=== PATIENT | female | born 1955 | race Caucasian/White ===

== ENCOUNTER → 2018-03-06 | Outpatient (REF) | payer MEDICARE, MEDICAID | LOC: M LAB REF 19:36 | DX: Z51.81 Encounter for therapeutic drug level monitoring (principal); Z79.899 Other long term (current) drug therapy ==

== ENCOUNTER → 2018-04-10 | Outpatient (CLI) | payer MEDICARE, MEDICAID ==
[2018-04-10 13:31] LABS: BASO % 0.8 % (0.0-1.0); EOS % 1.2 % (0.0-3.0); IMMATURE GRANULOCYTE % 0.4 % (0-3.0); LYMPH # 0.9 10^3/uL (1.5-4.5); LYMPH % 33.7 % (24.0-44.0); MONO # 0.3 10^3/uL (0.0-0.8); MONO % 10.6 % (0.0-5.0); NEUTROPHILS # 1.4 10^3/uL (1.8-7.7); NEUTROPHILS % 53.3 % (36.0-66.0)
[2018-04-10 15:19] LABS: HEMATOCRIT 36.6 % (36.0-47.0); MEAN CORPUSCULAR HEMOGLOBIN 28.4 pg (27.0-33.0); MEAN CORPUSCULAR HGB CONC 32.8 g/dl (32.0-36.5); MEAN CORPUSCULAR VOLUME 86.7 fl (80.0-96.0); PLATELET COUNT, AUTOMATED 233 10^3/uL (150-450); RED BLOOD COUNT 4.22 10^6/uL (4.00-5.40); RED CELL DISTRIBUTION WIDTH 12.4 % (11.5-14.5); WHITE BLOOD COUNT 2.6 10^3/uL (4.0-10.0)
== END ==
LOC: M LAB 11:41
DX: F25.0 Schizoaffective disorder, bipolar type (principal); Z79.899 Other long term (current) drug therapy
CPT/HCPCS: 85027

== ENCOUNTER → 2018-04-14 | Outpatient (CLI) | payer MEDICARE, MEDICAID ==
[2018-04-14 10:01] LABS: BASO % 0.4 % (0.0-1.0); EOS % 0.4 % (0.0-3.0); HEMOGLOBIN 12.1 g/dl (12.0-15.5); IMMATURE GRANULOCYTE % 0.4 % (0-3.0); LYMPH # 0.8 10^3/uL (1.5-4.5); LYMPH % 26.7 % (24.0-44.0); MEAN CORPUSCULAR HEMOGLOBIN 28.3 pg (27.0-33.0); MEAN CORPUSCULAR HGB CONC 33.6 g/dl (32.0-36.5); MEAN CORPUSCULAR VOLUME 84.3 fl (80.0-96.0); MONO # 0.3 10^3/uL (0.0-0.8); MONO % 9.3 % (0.0-5.0); NEUTROPHILS # 1.8 10^3/uL (1.8-7.7); NEUTROPHILS % 62.8 % (36.0-66.0); PLATELET COUNT, AUTOMATED 279 10^3/uL (150-450); RED BLOOD COUNT 4.27 10^6/uL (4.00-5.40); RED CELL DISTRIBUTION WIDTH 12.6 % (11.5-14.5); WHITE BLOOD COUNT 2.8 10^3/uL (4.0-10.0)
[2018-04-14 10:27] LABS: ALBUMIN 3.2 GM/DL (3.2-5.2); ALBUMIN/GLOBULIN RATIO 1.03 (1.00-1.93); ALKALINE PHOSPHATASE 93 U/L (45-117); ALT/SGPT 26 U/L (12-78); ANION GAP 8 MEQ/L (8-16); AST/SGOT 13 U/L (7-37); BILIRUBIN,TOTAL 0.4 MG/DL (0.2-1.0); BLOOD UREA NITROGEN 15 MG/DL (7-18); CALCIUM LEVEL 8.6 MG/DL (8.8-10.2); CARBON DIOXIDE LEVEL 29 MEQ/L (21-32); CHLORIDE LEVEL 101 MEQ/L (98-107); CHOLESTEROL LEVEL 169 MG/DL (<200); CHOLESTEROL RISK RATIO 2.682 (<5); CREATININE FOR GFR 0.48 MG/DL (0.55-1.30); FREE T4 0.93 NG/DL (0.76-1.46); GLOMERULAR FILTRATION RATE > 60.0 (>45); GLUCOSE, FASTING 80 MG/DL (70-100); HDL CHOLESTEROL 63 MG/DL (>40); LDL CHOLESTEROL 89.2 MG/DL (<100); NON-HDL-C 106 MG/DL; POTASSIUM SERUM 4.3 MEQ/L (3.5-5.1); SODIUM LEVEL 138 MEQ/L (136-145); TOTAL PROTEIN 6.3 GM/DL (6.4-8.2); TRIGLYCERIDES LEVEL 84 MG/DL (<150)
== END ==
LOC: M LAB 08:46
DX: F25.0 Schizoaffective disorder, bipolar type (principal); R94.31 Abnormal electrocardiogram [ECG] [EKG]; Z79.899 Other long term (current) drug therapy
CPT/HCPCS: 93005

== ENCOUNTER → 2018-04-17 | Outpatient (CLI) | payer MEDICARE, MEDICAID ==
[2018-04-17 09:30] LABS: BASO % 1.3 % (0.0-1.0); EOS % 0.3 % (0.0-3.0); HEMATOCRIT 36.2 % (36.0-47.0); HEMOGLOBIN 11.8 g/dl (12.0-15.5); IMMATURE GRANULOCYTE % 0.3 % (0-3.0); LYMPH # 0.8 10^3/uL (1.5-4.5); LYMPH % 25.9 % (24.0-44.0); MEAN CORPUSCULAR HEMOGLOBIN 27.8 pg (27.0-33.0); MEAN CORPUSCULAR HGB CONC 32.6 g/dl (32.0-36.5); MEAN CORPUSCULAR VOLUME 85.2 fl (80.0-96.0); MONO # 0.3 10^3/uL (0.0-0.8); MONO % 10.7 % (0.0-5.0); NEUTROPHILS % 61.5 % (36.0-66.0); PLATELET COUNT, AUTOMATED 269 10^3/uL (150-450); RED BLOOD COUNT 4.25 10^6/uL (4.00-5.40); RED CELL DISTRIBUTION WIDTH 12.5 % (11.5-14.5); WHITE BLOOD COUNT 3.2 10^3/uL (4.0-10.0)
[2018-04-17 10:14] LABS: ALBUMIN 3.2 GM/DL (3.2-5.2); ALBUMIN/GLOBULIN RATIO 1.03 (1.00-1.93); ALKALINE PHOSPHATASE 94 U/L (45-117); ALT/SGPT 24 U/L (12-78); ANION GAP 10 MEQ/L (8-16); AST/SGOT 17 U/L (7-37); BILIRUBIN,TOTAL 0.3 MG/DL (0.2-1.0); BLOOD UREA NITROGEN 18 MG/DL (7-18); CALCIUM LEVEL 8.7 MG/DL (8.8-10.2); CARBON DIOXIDE LEVEL 30 MEQ/L (21-32); CHLORIDE LEVEL 100 MEQ/L (98-107); CHOLESTEROL LEVEL 166 MG/DL (<200); CHOLESTEROL RISK RATIO 2.677 (<5); CREATININE FOR GFR 0.39 MG/DL (0.55-1.30); FREE T4 1.04 NG/DL (0.76-1.46); GLOMERULAR FILTRATION RATE > 60.0 (>45); GLUCOSE, FASTING 84 MG/DL (70-100); HDL CHOLESTEROL 62 MG/DL (>40); NON-HDL-C 104 MG/DL; POTASSIUM SERUM 4.6 MEQ/L (3.5-5.1); SODIUM LEVEL 140 MEQ/L (136-145); TOTAL PROTEIN 6.3 GM/DL (6.4-8.2); TRIGLYCERIDES LEVEL 65 MG/DL (<150)
== END ==
LOC: M LAB 08:31
DX: F25.0 Schizoaffective disorder, bipolar type (principal); Z79.899 Other long term (current) drug therapy
CPT/HCPCS: 84443

== ENCOUNTER → 2018-04-21 | Outpatient (CLI) | payer MEDICARE, MEDICAID ==
[2018-04-21 09:48] LABS: BASO % 0.9 % (0.0-1.0); EOS # 0.1 10^3/uL (0.0-0.50); EOS % 1.7 % (0.0-3.0); HEMATOCRIT 35.2 % (36.0-47.0); HEMOGLOBIN 11.6 g/dl (12.0-15.5); IMMATURE GRANULOCYTE % 0.3 % (0-3.0); LYMPH # 1.1 10^3/uL (1.5-4.5); LYMPH % 30.6 % (24.0-44.0); MEAN CORPUSCULAR HEMOGLOBIN 28.2 pg (27.0-33.0); MEAN CORPUSCULAR VOLUME 85.4 fl (80.0-96.0); MONO # 0.3 10^3/uL (0.0-0.8); NEUTROPHILS # 2.1 10^3/uL (1.8-7.7); NEUTROPHILS % 58.5 % (36.0-66.0); PLATELET COUNT, AUTOMATED 255 10^3/uL (150-450); RED BLOOD COUNT 4.12 10^6/uL (4.00-5.40); RED CELL DISTRIBUTION WIDTH 12.5 % (11.5-14.5); WHITE BLOOD COUNT 3.5 10^3/uL (4.0-10.0)
== END ==
LOC: M LAB 09:19
DX: F25.0 Schizoaffective disorder, bipolar type (principal)
CPT/HCPCS: 85025

== ENCOUNTER → 2018-04-28 | Outpatient (CLI) | payer MEDICARE, MEDICAID ==
[2018-04-28 09:34] LABS: BASO % 1.3 % (0.0-1.0); EOS # 0.1 10^3/uL (0.0-0.50); HEMATOCRIT 35.7 % (36.0-47.0); HEMOGLOBIN 11.8 g/dl (12.0-15.5); IMMATURE GRANULOCYTE % 0.3 % (0-3.0); LYMPH # 1.2 10^3/uL (1.5-4.5); LYMPH % 38.1 % (24.0-44.0); MEAN CORPUSCULAR HGB CONC 33.1 g/dl (32.0-36.5); MEAN CORPUSCULAR VOLUME 84.8 fl (80.0-96.0); MONO # 0.3 10^3/uL (0.0-0.8); MONO % 10.7 % (0.0-5.0); NEUTROPHILS # 1.5 10^3/uL (1.8-7.7); NEUTROPHILS % 47.6 % (36.0-66.0); PLATELET COUNT, AUTOMATED 233 10^3/uL (150-450); RED BLOOD COUNT 4.21 10^6/uL (4.00-5.40); RED CELL DISTRIBUTION WIDTH 12.9 % (11.5-14.5); WHITE BLOOD COUNT 3.1 10^3/uL (4.0-10.0)
== END ==
LOC: M LAB 08:56
DX: F25.0 Schizoaffective disorder, bipolar type (principal)
CPT/HCPCS: 85025

== ENCOUNTER → 2018-04-29 | Outpatient (CLI) | payer MEDICARE, MEDICAID ==
[2018-04-29 09:04] LABS: BASO % 0.9 % (0.0-1.0); EOS # 0.1 10^3/uL (0.0-0.50); EOS % 1.2 % (0.0-3.0); HEMATOCRIT 35.6 % (36.0-47.0); HEMOGLOBIN 11.6 g/dl (12.0-15.5); IMMATURE GRANULOCYTE % 0.7 % (0-3.0); LYMPH # 0.9 10^3/uL (1.5-4.5); LYMPH % 21.4 % (24.0-44.0); MEAN CORPUSCULAR HGB CONC 32.6 g/dl (32.0-36.5); MEAN CORPUSCULAR VOLUME 85.8 fl (80.0-96.0); MONO # 0.4 10^3/uL (0.0-0.8); MONO % 9.4 % (0.0-5.0); NEUTROPHILS # 2.8 10^3/uL (1.8-7.7); NEUTROPHILS % 66.4 % (36.0-66.0); PLATELET COUNT, AUTOMATED 232 10^3/uL (150-450); RED BLOOD COUNT 4.15 10^6/uL (4.00-5.40); RED CELL DISTRIBUTION WIDTH 12.8 % (11.5-14.5); WHITE BLOOD COUNT 4.3 10^3/uL (4.0-10.0)
== END ==
LOC: M LAB 08:36
DX: F25.0 Schizoaffective disorder, bipolar type (principal)
CPT/HCPCS: 85025

== ENCOUNTER → 2018-05-05 | Outpatient (CLI) | payer MEDICARE, MEDICAID ==
[2018-05-05 09:46] LABS: BASO % 0.8 % (0.0-1.0); EOS # 0.1 10^3/uL (0.0-0.50); EOS % 1.7 % (0.0-3.0); HEMATOCRIT 39.2 % (36.0-47.0); HEMOGLOBIN 12.8 g/dl (12.0-15.5); IMMATURE GRANULOCYTE % 0.2 % (0-3.0); LYMPH # 1.4 10^3/uL (1.5-4.5); LYMPH % 28.2 % (24.0-44.0); MEAN CORPUSCULAR HEMOGLOBIN 27.9 pg (27.0-33.0); MEAN CORPUSCULAR HGB CONC 32.7 g/dl (32.0-36.5); MEAN CORPUSCULAR VOLUME 85.4 fl (80.0-96.0); MONO # 0.7 10^3/uL (0.0-0.8); MONO % 15.3 % (0.0-5.0); NEUTROPHILS # 2.6 10^3/uL (1.8-7.7); NEUTROPHILS % 53.8 % (36.0-66.0); PLATELET COUNT, AUTOMATED 252 10^3/uL (150-450); RED BLOOD COUNT 4.59 10^6/uL (4.00-5.40); WHITE BLOOD COUNT 4.8 10^3/uL (4.0-10.0)
== END ==
LOC: M LAB 09:26
DX: F25.0 Schizoaffective disorder, bipolar type (principal)
CPT/HCPCS: 85025

== ENCOUNTER 2018-08-13 10:04 | Inpatient (IN) | payer MEDICARE, MEDICAID ==
[2018-08-13 11:13] LABS: HEMATOCRIT 38.8 % (36.0-47.0); HEMOGLOBIN 12.8 g/dl (12.0-15.5); MEAN CORPUSCULAR VOLUME 84.9 fl (80.0-96.0); PLATELET COUNT, AUTOMATED 235 10^3/uL (150-450); RED BLOOD COUNT 4.57 10^6/uL (4.00-5.40); RED CELL DISTRIBUTION WIDTH 14.2 % (11.5-14.5); WHITE BLOOD COUNT 9.7 10^3/uL (4.0-10.0)
[2018-08-13 12:04] LABS: ALBUMIN 4.2 GM/DL (3.2-5.2); ALBUMIN/GLOBULIN RATIO 1.35 (1.00-1.93); ALKALINE PHOSPHATASE 95 U/L (45-117); ALT/SGPT 50 U/L (12-78); ANION GAP 6 MEQ/L (8-16); AST/SGOT 28 U/L (7-37); BILIRUBIN,DIRECT < 0.1 MG/DL (0.0-0.2); BILIRUBIN,TOTAL 0.4 MG/DL (0.2-1.0); BLOOD UREA NITROGEN 16 MG/DL (7-18); CALCIUM LEVEL 9.3 MG/DL (8.8-10.2); CARBON DIOXIDE LEVEL 29 MEQ/L (21-32); CHLORIDE LEVEL 102 MEQ/L (98-107); CREATININE FOR GFR 0.51 MG/DL (0.55-1.30); ETHYL ALCOHOL (ETHANOL) < 0.003 % (0.000-0.010); GLOMERULAR FILTRATION RATE > 60.0 (>45); GLUCOSE, FASTING 87 MG/DL (70-100); POTASSIUM SERUM 4.2 MEQ/L (3.5-5.1); SALICYLATE LEVEL < 1.7 MG/DL (5.0-30.0); SODIUM LEVEL 137 MEQ/L (136-145); TOTAL PROTEIN 7.3 GM/DL (6.4-8.2)
[2018-08-13 12:06] LABS: ACETAMINOPHEN LEVEL < 2.0 UG/ML (10.0-30.0)
[2018-08-13] MEDS ORDERED: MOM 30ML SUSPENSION UDC PO (13:45)
[2018-08-13 13:46] LABS: AMPHETAMINES LEVEL URINE NEGATIVE (NEGATIVE); BARBITURATES URINE NEGATIVE (NEGATIVE); BENZODIAZEPINES URINE NEGATIVE (NEGATIVE); CANNABINOIDS URINE NEGATIVE (NEGATIVE); COCAINE METABOLITE URINE NEGATIVE (NEGATIVE); METHADONE URINE NEGATIVE (NEGATIVE); OPIATES URINE NEGATIVE (NEGATIVE); PHENCYCLIDINE URINE NEGATIVE (NEGATIVE)
[2018-08-13] MEDS: LORazepam 1 MG TAB PO (17:25)
[2018-08-13] MEDS ORDERED: ALBUTEROL 90 MCG/ACT 8GM HFA INHALER INH (18:30)
[2018-08-13] MEDS: OLANZapine 10 MG TAB PO (21:50)
[2018-08-13] MEDS: MAALOX 30 ML SUSP *UDC PO (21:50)
[2018-08-13] MEDS: FLUTICASONE HFA 110 MCG 12 GM INHALER (FLOVENT) INH (21:51)
[2018-08-14] MEDS: ARIPiprazole 10 MG TAB PO ×2 (09:00→21:00)
[2018-08-14] MEDS: FLUTICASONE HFA 110 MCG 12 GM INHALER (FLOVENT) INH ×2 (10:04→21:00)
[2018-08-14] MEDS: LORazepam 2 MG TAB PO (15:25)
[2018-08-14] MEDS: OLANZapine 10 MG TAB PO (21:00)
[2018-08-15] MEDS: OLANZapine 10 MG TAB PO ×2 (00:10→22:43)
[2018-08-15] MEDS: LORazepam 2 MG TAB PO ×2 (00:10→19:56)
[2018-08-15] MEDS: traZODone 50 MG TAB PO (00:10)
[2018-08-15] MEDS: ARIPiprazole 10 MG TAB PO ×2 (08:52→21:00)
[2018-08-15] MEDS: FLUTICASONE HFA 110 MCG 12 GM INHALER (FLOVENT) INH ×2 (08:52→21:00)
[2018-08-16] MEDS: ARIPiprazole 10 MG TAB PO ×2 (08:06→21:00)
[2018-08-16] MEDS: FLUTICASONE HFA 110 MCG 12 GM INHALER (FLOVENT) INH ×2 (08:06→21:00)
[2018-08-16] MEDS: OLANZapine 10 MG TAB PO (21:00)
[2018-08-17] MEDS: MAALOX 30 ML SUSP *UDC PO (04:10)
[2018-08-17] MEDS: FLUTICASONE HFA 110 MCG 12 GM INHALER (FLOVENT) INH ×2 (08:08→21:00)
[2018-08-17] MEDS: ARIPiprazole 10 MG TAB PO ×2 (08:08→21:00)
[2018-08-17] MEDS: LORazepam 2 MG TAB PO (14:44)
[2018-08-17] MEDS: OLANZapine 10 MG TAB PO (21:00)
[2018-08-17] MEDS: traZODone 50 MG TAB PO (21:09)
[2018-08-18] MEDS: ACETAMINOPHEN TAB 650MG DOSE (2X325MG) PO (00:28)
[2018-08-18] MEDS: MAALOX 30 ML SUSP *UDC PO (03:33)
[2018-08-18] MEDS: ARIPiprazole 10 MG TAB PO (08:03)
[2018-08-18] MEDS: FLUTICASONE HFA 110 MCG 12 GM INHALER (FLOVENT) INH ×2 (08:05→19:54)
[2018-08-18] MEDS ORDERED: LIDOCAINE 5% OINT 30 GM TOP (10:30)
[2018-08-18] MEDS: DOCUSATE SODIUM 100 MG CAP PO (10:53)
[2018-08-18] MEDS: oxyBUTYnin *DITROPAN XL* 5 MG TABCR PO (11:45)
[2018-08-18] MEDS: MIRALAX *UNIT DOSE* 17GM PACKET PO (11:46)
[2018-08-18 15:10] LABS: KETONE, URINE AUTO RFX NEGATIVE (NEGATIVE); LEUKOCYTE ESTERASE UR AUTO RFX NEGATIVE (NEGATIVE); MUCUS, URINE RFX SMALL (NEGATIVE); NITRITE, URINE AUTO RFX NEGATIVE (NEGATIVE); RBC, URINE AUTO RFX 0 /HPF (0-3); SPECIFIC GRAVITY UR AUTO RFX 1.006 (1.002-1.035); SQUAM EPITHELIAL CELL UR AURFX 0 /HPF (0-6); WBC, URINE AUTO RFX 0 /HPF (0-3)
[2018-08-18] MEDS: OLANZapine 10 MG TAB PO (19:54)
[2018-08-18] MEDS: ARIPiprazole 15 MG TAB (AbiLIFY) PO (19:54)
[2018-08-19] MEDS: FLUTICASONE HFA 110 MCG 12 GM INHALER (FLOVENT) INH ×2 (08:03→20:03)
[2018-08-19] MEDS: oxyBUTYnin *DITROPAN XL* 5 MG TABCR PO (08:03)
[2018-08-19] MEDS: ARIPiprazole 15 MG TAB (AbiLIFY) PO ×2 (08:03→20:04)
[2018-08-19] MEDS: OLANZapine ORAL DISINTEGRATING TAB 5MG PO (15:22)
[2018-08-19] MEDS: OLANZapine 10 MG TAB PO (20:04)
[2018-08-20] MEDS: MAALOX 30 ML SUSP *UDC PO (04:26)
[2018-08-20] MEDS: FLUTICASONE HFA 110 MCG 12 GM INHALER (FLOVENT) INH ×2 (08:05→21:00)
[2018-08-20] MEDS: ARIPiprazole 15 MG TAB (AbiLIFY) PO ×2 (08:06→21:00)
[2018-08-20] MEDS: oxyBUTYnin *DITROPAN XL* 5 MG TABCR PO (08:06)
[2018-08-20] MEDS: ARIPIPRAZOLE LAUROXIL 1,064 MG/3.9ML INJ(ARISTADA)(J1942 PER 1MG) IM (13:32)
[2018-08-20] MEDS: OLANZapine ORAL DISINTEGRATING TAB 5MG PO (17:00)
[2018-08-20] MEDS: HYDROCORTISONE 1% CREAM 30 GM TOP (17:57)
[2018-08-20] MEDS: OLANZapine 10 MG TAB PO (21:00)
[2018-08-21] MEDS: MAALOX 30 ML SUSP *UDC PO ×2 (01:59→23:36)
[2018-08-21] MEDS: ARIPiprazole 15 MG TAB (AbiLIFY) PO (09:00)
[2018-08-21] MEDS: FLUTICASONE HFA 110 MCG 12 GM INHALER (FLOVENT) INH ×2 (09:00→21:00)
[2018-08-21] MEDS: DOCUSATE SODIUM 100 MG CAP PO (09:53)
[2018-08-21] MEDS: oxyBUTYnin *DITROPAN XL* 5 MG TABCR PO (09:53)
[2018-08-21] MEDS: BISACODYL 5 MG TAB PO (11:10)
[2018-08-21] MEDS: OLANZapine 10 MG TAB PO (21:22)
[2018-08-22] MEDS: OLANZapine ORAL DISINTEGRATING TAB 5MG PO (03:32)
[2018-08-22] MEDS: FLUTICASONE HFA 110 MCG 12 GM INHALER (FLOVENT) INH ×2 (09:00→20:29)
[2018-08-22] MEDS: oxyBUTYnin *DITROPAN XL* 5 MG TABCR PO (09:00)
[2018-08-22] MEDS: HYDROCORTISONE 1% CREAM 30 GM TOP (09:46)
[2018-08-22] MEDS: LORazepam 2 MG TAB PO (10:13)
[2018-08-22] MEDS: diphenhydrAMINE CREAM 30GM TOP (15:22)
[2018-08-22] MEDS: OLANZapine 10 MG TAB PO (20:28)
[2018-08-22] MEDS: MAALOX 30 ML SUSP *UDC PO (22:07)
[2018-08-23] MEDS: BISACODYL 5 MG TAB PO (09:00)
[2018-08-23] MEDS: FLUTICASONE HFA 110 MCG 12 GM INHALER (FLOVENT) INH ×2 (09:00→20:16)
[2018-08-23] MEDS: oxyBUTYnin *DITROPAN XL* 5 MG TABCR PO (09:28)
[2018-08-23] MEDS: OLANZapine 10 MG TAB PO (20:15)
[2018-08-23] MEDS: ACETAMINOPHEN TAB 650MG DOSE (2X325MG) PO (20:17)
[2018-08-24] MEDS: MAALOX 30 ML SUSP *UDC PO ×2 (02:25→06:36)
[2018-08-24] MEDS: oxyBUTYnin *DITROPAN XL* 5 MG TABCR PO (08:04)
[2018-08-24] MEDS: BISACODYL 5 MG TAB PO (08:04)
[2018-08-24] MEDS: FLUTICASONE HFA 110 MCG 12 GM INHALER (FLOVENT) INH ×2 (08:05→20:00)
[2018-08-24] MEDS: OLANZapine 10 MG TAB PO (20:01)
[2018-08-25] MEDS: MAALOX 30 ML SUSP *UDC PO (01:04)
[2018-08-25] MEDS: oxyBUTYnin *DITROPAN XL* 5 MG TABCR PO (08:09)
[2018-08-25] MEDS: DOCUSATE SODIUM 100 MG CAP PO (08:10)
[2018-08-25] MEDS: BISACODYL 5 MG TAB PO ×2 (08:12)
[2018-08-25] MEDS: FLUTICASONE HFA 110 MCG 12 GM INHALER (FLOVENT) INH ×3 (09:00→22:59)
[2018-08-25] MEDS: OLANZapine ORAL DISINTEGRATING TAB 5MG PO (20:43)
[2018-08-26] MEDS: MAALOX 30 ML SUSP *UDC PO ×2 (02:03→22:50)
[2018-08-26] MEDS: oxyBUTYnin *DITROPAN XL* 5 MG TABCR PO (08:30)
[2018-08-26] MEDS: DOCUSATE SODIUM 100 MG CAP PO (08:30)
[2018-08-26] MEDS: OLANZapine ORAL DISINTEGRATING TAB 5MG PO (20:08)
[2018-08-26] MEDS: FLUTICASONE HFA 110 MCG 12 GM INHALER (FLOVENT) INH (21:57)
[2018-08-27] MEDS: MAALOX 30 ML SUSP *UDC PO ×2 (03:55→23:00)
[2018-08-27] MEDS: FLUTICASONE HFA 110 MCG 12 GM INHALER (FLOVENT) INH ×2 (08:51→20:44)
[2018-08-27] MEDS: oxyBUTYnin *DITROPAN XL* 5 MG TABCR PO (08:51)
[2018-08-27] MEDS: **PENDING PPD ENTRY XX (09:00)
[2018-08-27] MEDS ORDERED: TUBERCULIN PPD 5 UNITS/0.1 ML ID (10:15)
[2018-08-27] MEDS: OLANZapine ORAL DISINTEGRATING TAB 5MG PO (20:43)
[2018-08-28] MEDS: MAALOX 30 ML SUSP *UDC PO (03:19)
[2018-08-28] MEDS: oxyBUTYnin *DITROPAN XL* 5 MG TABCR PO (08:23)
[2018-08-28] MEDS: FLUTICASONE HFA 110 MCG 12 GM INHALER (FLOVENT) INH ×2 (08:24→20:57)
[2018-08-28] MEDS: ACETAMINOPHEN TAB 650MG DOSE (2X325MG) PO (10:07)
[2018-08-28] MEDS: TUBERCULIN PPD 5 UNITS/0.1 ML ID (10:28)
[2018-08-28] MEDS: OLANZapine ORAL DISINTEGRATING TAB 5MG PO (20:54)
[2018-08-28] MEDS: LORazepam 2 MG TAB PO (20:54)
[2018-08-28] MEDS: BISACODYL 5 MG TAB PO (21:20)
[2018-08-29] MEDS: oxyBUTYnin *DITROPAN XL* 5 MG TABCR PO (08:48)
[2018-08-29] MEDS: FLUTICASONE HFA 110 MCG 12 GM INHALER (FLOVENT) INH ×2 (08:49→21:00)
[2018-08-29] MEDS ORDERED: PPD DOCUMENTATION ENTRY MISC XX (10:00)
[2018-08-29] MEDS: OLANZapine ORAL DISINTEGRATING TAB 5MG PO (20:40)
[2018-08-29] MEDS: ACETAMINOPHEN TAB 650MG DOSE (2X325MG) PO (22:24)
[2018-08-30] MEDS: MAALOX 30 ML SUSP *UDC PO ×2 (04:11→21:21)
[2018-08-30] MEDS: oxyBUTYnin *DITROPAN XL* 5 MG TABCR PO (08:07)
[2018-08-30] MEDS: FLUTICASONE HFA 110 MCG 12 GM INHALER (FLOVENT) INH ×2 (08:08→20:10)
[2018-08-30] MEDS: PPD DOCUMENTATION ENTRY MISC XX (10:18)
[2018-08-30] MEDS: BISACODYL 5 MG TAB PO (20:07)
[2018-08-30] MEDS: OLANZapine ORAL DISINTEGRATING TAB 5MG PO ×2 (20:08→20:10)
[2018-08-31] MEDS: FLUTICASONE HFA 110 MCG 12 GM INHALER (FLOVENT) INH ×2 (07:59→20:28)
[2018-08-31] MEDS: oxyBUTYnin *DITROPAN XL* 5 MG TABCR PO (07:59)
[2018-08-31] MEDS: OLANZapine ORAL DISINTEGRATING TAB 5MG PO (20:26)
[2018-09-01] MEDS: oxyBUTYnin *DITROPAN XL* 5 MG TABCR PO (08:24)
[2018-09-01] MEDS: FLUTICASONE HFA 110 MCG 12 GM INHALER (FLOVENT) INH ×2 (08:24→21:00)
[2018-09-01] MEDS: BISACODYL 5 MG TAB PO (08:24)
[2018-09-01] MEDS: OLANZapine ORAL DISINTEGRATING TAB 5MG PO (20:14)
[2018-09-01] MEDS: LORazepam 2 MG TAB PO (20:14)
[2018-09-02] MEDS: oxyBUTYnin *DITROPAN XL* 5 MG TABCR PO (08:49)
[2018-09-02] MEDS: FLUTICASONE HFA 110 MCG 12 GM INHALER (FLOVENT) INH ×2 (09:00→20:12)
[2018-09-02] MEDS: LORazepam 2 MG TAB PO (20:15)
[2018-09-02] MEDS: OLANZapine ORAL DISINTEGRATING TAB 5MG PO (20:15)
[2018-09-02] MEDS: MAALOX 30 ML SUSP *UDC PO ×2 (20:16→23:11)
[2018-09-02 23:31] LABS: BASO % 0.3 % (0.0-1.0); EOS # 0.1 10^3/uL (0.0-0.50); EOS % 2.1 % (0.0-3.0); HEMATOCRIT 36.4 % (36.0-47.0); HEMOGLOBIN 11.9 g/dl (12.0-15.5); IMMATURE GRANULOCYTE % 0.3 % (0-3.0); LYMPH # 1.6 10^3/uL (1.5-4.5); LYMPH % 26.3 % (24.0-44.0); MEAN CORPUSCULAR HEMOGLOBIN 28.4 pg (27.0-33.0); MEAN CORPUSCULAR HGB CONC 32.7 g/dl (32.0-36.5); MEAN CORPUSCULAR VOLUME 86.9 fl (80.0-96.0); MONO # 0.7 10^3/uL (0.0-0.8); MONO % 11.1 % (0.0-5.0); NEUTROPHILS # 3.7 10^3/uL (1.8-7.7); NEUTROPHILS % 59.9 % (36.0-66.0); PLATELET COUNT, AUTOMATED 249 10^3/uL (150-450); RED BLOOD COUNT 4.19 10^6/uL (4.00-5.40); WHITE BLOOD COUNT 6.2 10^3/uL (4.0-10.0)
[2018-09-02 23:50] LABS: INR 0.98; PROTHROMBIN TIME 13.1 SECONDS (12.1-14.4)
[2018-09-02 23:53] LABS: D-DIMER QUANT 508.68 ng/ml (<500)
[2018-09-03 00:08] LABS: ALBUMIN 3.2 GM/DL (3.2-5.2); ALBUMIN/GLOBULIN RATIO 1.03 (1.00-1.93); ALKALINE PHOSPHATASE 80 U/L (45-117); ALT/SGPT 19 U/L (12-78); ANION GAP 6 MEQ/L (8-16); AST/SGOT 13 U/L (7-37); BILIRUBIN,TOTAL 0.3 MG/DL (0.2-1.0); BLOOD UREA NITROGEN 16 MG/DL (7-18); CALCIUM LEVEL 8.5 MG/DL (8.8-10.2); CARBON DIOXIDE LEVEL 29 MEQ/L (21-32); CHLORIDE LEVEL 102 MEQ/L (98-107); CPK CREATINE PHOSPHOKINASE 47 U/L (26-192); CREATININE FOR GFR 0.57 MG/DL (0.55-1.30); GLOMERULAR FILTRATION RATE > 60.0 (>45); GLUCOSE, FASTING 123 MG/DL (70-100); MAGNESIUM LEVEL 2.1 MG/DL (1.8-2.4); MB/CK RELATIVE INDEX 3.62 (< OR =4); POTASSIUM SERUM 3.6 MEQ/L (3.5-5.1); SODIUM LEVEL 137 MEQ/L (136-145); TOTAL PROTEIN 6.3 GM/DL (6.4-8.2); TROPONIN I < 0.02 NG/ML (< 0.10)
[2018-09-03] MEDS ORDERED: ISOVUE-370 76% 100ML VIAL (Q9967) As Ordered (01:12)
[2018-09-03 05:43] LABS: HEMATOCRIT 39.5 % (36.0-47.0); HEMOGLOBIN 12.5 g/dl (12.0-15.5)
[2018-09-03 06:13] LABS: CPK CREATINE PHOSPHOKINASE 44 U/L (26-192); MB/CK RELATIVE INDEX 3.64 (< OR =4); TROPONIN I < 0.02 NG/ML (< 0.10)
[2018-09-03] MEDS: SUCRALFATE SUSP 1GM/10ML UD PO (07:30)
[2018-09-03] MEDS: FLUTICASONE HFA 110 MCG 12 GM INHALER (FLOVENT) INH (09:00)
[2018-09-03] MEDS: PANTOPRAZOLE 40MG TAB (PROTONIX) PO (09:05)
[2018-09-03] MEDS: oxyBUTYnin *DITROPAN XL* 5 MG TABCR PO (09:05)
[2018-09-03] MEDS: BISACODYL 5 MG TAB PO (09:05)
[2018-09-03] MEDS ORDERED: SUCRALFATE SUSP 1GM/10ML UD PO (12:00)
== END 2018-09-03 11:30 | disposition home or self-care (01) | DRG 885 ==
LOC: M PSY 08-15 13:05 → M ED 10:04 → M ED INP 15:33 → M PSY 16:35
PROVIDERS: Psychiatry & Neurology Psychiatry
DX: F25.9 Schizoaffective disorder, unspecified (principal); K21.9 Gastro-esophageal reflux disease without esophagitis; J44.9 Chronic obstructive pulmonary disease, unspecified; F17.200 Nicotine dependence, unspecified, uncomplicated; R07.9 Chest pain, unspecified; R21 Rash and other nonspecific skin eruption; K59.09 Other constipation; Z79.899 Other long term (current) drug therapy; Z79.51 Long term (current) use of inhaled steroids; Z88.6 Allergy status to analgesic agent; Z88.8 Allergy status to other drugs, medicaments and biological substances

== ENCOUNTER → 2018-09-23 | Outpatient (REF) | payer MEDICARE, MEDICAID ==
[~2018-09-23] MED LIST: /DIVA50TA PO; /MOM400 PO; ALBU17IN INH; ANOR1AER PO; ATIV1TAB7 PO; BENZ1TAB PO; BISAC5TA PO; CALC600T68 PO; COMBAER6 IN; DILT PO; DULC5TAB PO; FLUP5TA PO; FLUT11IN INH; FURO20TA2 PO; INSUH10VL INJ; INSULANT SC; INVE156I IM; LATU40TA PO; LATU80TA PO; METF1000 PO; MIRA3350 PO; MYLASSUD PO; NAPR500T2 PO; OLAN20TA14 PO; OLAN5ZYD PO; OMEP20CA3 PO; OXYB5TAB PO; PRED1TAB32 PO; PROAAER10 INH; STOO100C PO; SYNT25TA PO; TRAZO50TA PO; TYLE325T5 PO; VITA-122 PO; ZYPR10TA PO; ZYPR15TA PO; ZYPR20TA; ambien PO; eye drops
[2018-09-23 12:39] LABS: BASO % 0.3 % (0.0-1.0); EOS # 0.1 10^3/uL (0.0-0.50); EOS % 0.8 % (0.0-3.0); HEMATOCRIT 40.2 % (36.0-47.0); HEMOGLOBIN 13.2 g/dl (12.0-15.5); LYMPH # 0.9 10^3/uL (1.5-4.5); LYMPH % 13.9 % (24.0-44.0); MEAN CORPUSCULAR HEMOGLOBIN 28.1 pg (27.0-33.0); MEAN CORPUSCULAR HGB CONC 32.8 g/dl (32.0-36.5); MEAN CORPUSCULAR VOLUME 85.7 fl (80.0-96.0); MONO # 0.6 10^3/uL (0.0-0.8); MONO % 8.9 % (0.0-5.0); NEUTROPHILS # 4.8 10^3/uL (1.8-7.7); NEUTROPHILS % 75.9 % (36.0-66.0); PLATELET COUNT, AUTOMATED 252 10^3/uL (150-450); RED BLOOD COUNT 4.69 10^6/uL (4.00-5.40); WHITE BLOOD COUNT 6.3 10^3/uL (4.0-10.0)
[2018-09-23 12:52] LABS: ALBUMIN 4.1 GM/DL (3.2-5.2); ALT/SGPT 31 U/L (12-78); BILIRUBIN,TOTAL 0.5 MG/DL (0.2-1.0); BLOOD UREA NITROGEN 17 MG/DL (7-18); CALCIUM LEVEL 9.6 MG/DL (8.8-10.2); CARBON DIOXIDE LEVEL 32 MEQ/L (21-32); CHLORIDE LEVEL 99 MEQ/L (98-107); CHOLESTEROL LEVEL 203 MG/DL (<200); CHOLESTEROL RISK RATIO 2.092 (<5); CREATININE FOR GFR 0.62 MG/DL (0.55-1.30); GLOMERULAR FILTRATION RATE > 60.0 (>45); GLUCOSE, FASTING 108 MG/DL (70-100); HDL CHOLESTEROL 97 MG/DL (>40); LDL CHOLESTEROL 97 MG/DL (<100); NON-HDL-C 106 MG/DL; POTASSIUM SERUM 3.9 MEQ/L (3.5-5.1); RHEUMATOID FACTOR QUANT < 10.0 IU/ML (<15.0); SODIUM LEVEL 137 MEQ/L (136-145); TOTAL PROTEIN 7.5 GM/DL (6.4-8.2); TRIGLYCERIDES LEVEL 46 MG/DL (<150); URIC ACID 2.2 MG/DL (2.6-6.0)
[2018-09-23 12:54] LABS: TOTAL 25(OH) VITAMIN D 29.6 NG/ML (30.0-100.0)
[2018-09-23 13:12] LABS: HEMOGLOBIN A1c 5.6 %
[2018-09-24 14:14] LABS: ANTINUCLEAR ANTIBODIES DIRECT Negative (Negative)
== END ==
LOC: M LAB REF 11:57
PROVIDERS: ATTEND Nurse Practitioner Family
DX: Z13.9 Encounter for screening, unspecified (principal); M19.90 Unspecified osteoarthritis, unspecified site; E55.9 Vitamin D deficiency, unspecified; E07.9 Disorder of thyroid, unspecified; E78.00 Pure hypercholesterolemia, unspecified